=== PATIENT | male | born 1945 | race Caucasian/White ===

== ENCOUNTER → 2018-11-06 | Emergency (ER) | payer MEDICARE ==
[~2018-11-06] VITALS: Ht 172.7 cm; Wt 70.3 kg
[2018-11-06 19:08] VITALS: BP 145/83
== END | disposition home or self-care (01) ==
LOC: ER 19:13
DX: J02.8 Acute pharyngitis due to other specified organisms (principal); J44.9 Chronic obstructive pulmonary disease, unspecified; F17.200 Nicotine dependence, unspecified, uncomplicated